=== PATIENT | male | born 1965 | race Caucasian/White ===

== ENCOUNTER 2020-10-14 09:28 | Emergency (ER) | payer OTHER ==
[~2020-10-14] VITALS: Ht 175.3 cm; Wt 147.0 kg
[~2020-10-14 09:28] MED LIST: LISINOPRIL-HCT1 EAC2 PO; OMEPRAZOLE20 MG PO; PERCOCET 10-321 EACH PO
[2020-10-14] MEDS ORDERED: PROTONIX20 MG PO (12:14)
--- NOTE | 2020-10-15 11:00 | EKG ---
[facility] [address] [facility] [place] [address] Signed Normal sinus rhythm Incomplete right bundle branch block Borderline ECG No previous ECGs available Confirmed by HITESH LITTLE DO ([id number]) on 10/15/2020 11:00:24 AM Electronically Signed By: HITESH LITTLE DO 10/15/20 1100 PATIENT NAME: NAHOMY CARO Electrocardiogram DATE OF : 69 PHYSICIAN: HITESH LITTLE DO REPORT #: [id number] REPORT IS CONFIDENTIAL AND NOT TO BE RELEASED WITHOUT AUTHORIZATION
== END 2020-10-14 12:32 | disposition home or self-care (01) ==
LOC: ED 09:28
DX: K92.2 Gastrointestinal hemorrhage, unspecified (principal); D64.9 Anemia, unspecified; F17.200 Nicotine dependence, unspecified, uncomplicated; Z79.899 Other long term (current) drug therapy
CPT/HCPCS: 80053; 83735; 84484; 85025; 93005; 93010; 99285-25

== ENCOUNTER 2020-10-16 07:30 | Day surgery (SDC) | payer OTHER ==
[~2020-10-16] VITALS: Ht 175.3 cm; Wt 147.7 kg
[~2020-10-16 07:30] MED LIST changes: +PROTONIX20 MG PO
[2020-10-16] MEDS ORDERED: ELIQUIS5 MG PO (08:04)
--- NOTE | 2020-10-16 10:06 | NUR ---
10/16/20 1006 Sintia Haynes 0958: PT ARRIVES TO PACU VIA STRETCHER FOR RECOVERY, NON AROUSABLE WITH NASAL AND ORAL AIRWAY IN PLACE. VSS, RESP EVEN AND UNLABORED. O2 SAT >98% ON 15L VIA MASK 1002: PT COUGHS AND BEGINS TO GAG ON ORAL AIRWAY. REMOVED AT THIS TIME. RESPONSIVE TO TACTILE STIMULI. 1004: OXYGEN TURNED DOWN TO 8L VIA FACEMAKS. STABLE SAT >98% AT THIS TIME
--- NOTE | 2020-10-16 13:52 | OR ---
[facility] [address] [place], [place] [address] Signed DATE OF OPERATION: 10/16/2020 SURGEON: Gifty Bolton MD PREOPERATIVE DIAGNOSES: 1. Chronic progressive iron deficiency anemia. 2. Morbid obesity with complex sleep apnea physiology. 3. Chronic anticoagulation related to prior deep venous thrombosis and pulmonary embolism (currently on Eliquis). POSTOPERATIVE DIAGNOSES: 1. Healed distal esophageal ulceration with hiatal hernia. No evidence of Helicobacter pylori or ulceration. No gastritis or duodenitis. 2. Diverticulosis of colon without sign of polyps or colitis. 3. Internal hemorrhoids. PROCEDURE: 1. Esophagogastroduodenoscopy with biopsy. 2. Total colonoscopy to cecum. ANESTHESIA: Intravenous sedation, propofol infusion, Gifty Brenner CRNA. INDICATION: This 55-year-old morbidly obese white man has numerous medical problems most dominantly recently including iron deficiency anemia. He is a patient of Dr. Johnson and also Dr. Urban and is undergoing iron infusion therapy recently. He is chronically anticoagulated with Eliquis related to deep venous thrombosis and pulmonary embolism. He presented to the emergency room two days ago and evaluated by Dr. Aviles showing his hemoglobin to be 9.2, previously 10.6 on September 23. The patient has described as having some "dark stool," but no gross blood per rectum. The patient says he had an ulcer in the , though his diagnosis was not associated with upper endoscopy as far as I can determine. He also suffered a pulmonary embolism and hospitalized between August 08 and and he was given a caval filter at that time, which has since been removed. He is anticipated to be on "Eliquis for life." Prior colonoscopy has shown diverticulosis. He is here for upper endoscopy and colonoscopy to identify possible source of his iron deficiency anemia given the aforementioned factors. He was withdrawn from Eliquis yesterday and today and given Lovenox 40 mg subcutaneously yesterday anticipating upper endoscopy today. The risks of bleeding, infection, and perforation were reviewed with Electronically Signed By: GIFTY BOLTON MD 10/16/20 1352 PATIENT NAME: NAHOMY CARO OPERATIVE REPORT DATE OF : 69 REPORT #: [id number] PHYSICIAN: GIFTY BOLTON MD PCP: NOELLE JOHNSON MD REPORT IS CONFIDENTIAL AND NOT TO BE RELEASED WITHOUT AUTHORIZATION [facility] [address] [place], [place] [address] Signed him. He understands and wished to proceed. FINDINGS: Upper endoscopy did demonstrate distal esophagitis and a linear healed esophageal ulcer. There was no sign of neoplasm. There was no clear evidence of Hunter's epithelium. The stomach and duodenum were essentially normal. Biopsies were obtained to assess for celiac disease and gastritis. Colonoscopy showed a well prepped bowel. Complete colonoscopy was undertaken of the cecum without question. There were numerous large diverticula of the sigmoid and left colon, but no sign of polyps, colitis, or other lesion that would account for bleeding. He did have hemorrhoids on retroflexed view, but they were certainly not bleeding. DESCRIPTION OF PROCEDURE: The patient was brought to the endoscopy suite, given topical lidocaine hypopharyngeal spray anesthesia. He was given intravenous sedation with propofol infusional technique with full cardiopulmonary monitoring by the wireworker supervisor. He was noted to have relatively severe apneic changes during the course of the procedure, which was well supported by the wireworker supervisor. A bite block was placed. An Olympus video upper endoscope was passed in the hypopharynx. The vocal cords appeared normal. The hypopharyngeal tissues redundant, but normal otherwise. Scope was advanced to the esophagus, throughout its length, it was normal except in the distal portion where there is a healing linear ulceration. The scope was passed to the stomach, which was insufflated with air. Rugal folds appeared normal. There was no sign of ulceration or inflammation. The pylorus was normal, scope was passed through into the duodenum. Careful inspection there showed no sign of ulceration or inflammation. Biopsies taken of the duodenal mucosa to assess for celiac disease. The scope was withdrawn and biopsies taken of the antrum for both JOSEPH and pathologic testing. Retroflexed view confirmed a poor flap valve consistent with hiatal hernia. The scope was withdrawn to the distal esophagus after biopsies of the antrum and biopsies then taken of the distal esophageal area including the ulcerated area. There was no sign of varices or other abnormality. Further withdrawal of scope showed no other findings of concern. Plans were then made for colonoscopy. Digital examination showed very lax sphincter tone. The Olympus video colonoscope was passed in the rectum and manipulated throughout the colon noting numerous diverticula of the sigmoid and left colon. The scope was ultimately passed to the cecum. The ileocecal valve and appendiceal orifice were normal. The scope was withdrawn from that point and careful inspection showed no evidence of abnormality other than the diverticulosis and on retroflexed view, internal hemorrhoidal changes which were not showing signs of bleeding. Scope was removed and the patient was taken to the recovery room in good condition. CONCLUDING DIAGNOSIS: Electronically Signed By: GIFTY BOLTON MD 10/16/20 1352 PATIENT NAME: NAHOMY CARO OPERATIVE REPORT DATE OF : 69 REPORT #: [id number] PHYSICIAN: GIFTY BOLTON MD PCP: NOELLE JOHNSON MD REPORT IS CONFIDENTIAL AND NOT TO BE RELEASED WITHOUT AUTHORIZATION [facility] [address] [place] [address] Signed The only lesion that may have contributed to microcytic anemia, might be a linear ulceration of the esophagus, which appears to be healing well. PLAN: He will return to the ongoing care of Dr. Johnson and Dr. Urban. Would suggest continued use of PPI medication. As regard to his Eliquis, we will recommend he begin that tomorrow. He will be given Lovenox 40 mg subcutaneously today. MD JOSE Griffiths/MODL /[id number] cc: MD Reyes De Los Santos MD William S. Powell, MD Copies: NOELLE JOHNSON MD, ROBERT C MD POWELL, WILLIAM S MD ~ Electronically Signed By: GIFTY BOLTON MD 10/16/20 1352 PATIENT NAME: NAHOMY CARO OPERATIVE REPORT DATE OF : 69 REPORT #: [id number] PHYSICIAN: GIFTY BOLTON MD PCP: NOELLE JOHNSON MD REPORT IS CONFIDENTIAL AND NOT TO BE RELEASED WITHOUT AUTHORIZATION
--- NOTE | 2020-10-21 09:05 | PATH ---
[facility] [address] [place], [place] [address] Signed SPECIMEN(S): A DUODENAL BIOPSY SPECIMEN(S): B ANTRUM/PYLORUS SPECIMEN(S): C DISTAL ESOPHAGUS SPECIMEN SOURCE: A. DUODENAL BIOPSY B. ANTRUM/PYLORUS C. DISTAL ESOPHAGUS CLINICAL HISTORY: Anemia. Postop diagnosis: Diverticulosis; internal hemorrhoids MICROSCOPIC DESCRIPTION: Histologic sections of all submitted blocks are examined by light microscopy. These findings, together with the gross examination, support the pathologic diagnosis. FINAL PATHOLOGIC DIAGNOSIS: A. Duodenum: - Duodenal mucosa with normal villous architecture. - Negative for inflammatory changes, features of celiac disease, and other abnormality. B. Antrum/pylorus: - Antral-type mucosa without significant inflammatory changes. - Negative for gastropathy, metaplasia, dysplasia and neoplasia. - No Helicobacter pylori organisms identified on routinely stained sections. C. Distal esophagus: - Reactive squamous mucosa with foci of acute esophagitis (intraepithelial neutrophils). - Negative for a significant eosinophil population. - No fungal organisms identified (confirmed with PAS fungal stain). - No glandular mucosa present in the sampled tissue. - Negative for dysplasia and malignancy. BES:[facility]:C2NR GROSS DESCRIPTION: Three specimens are received in three containers, labeled "PH." A. The specimen, labeled "PH," and designated on the requisition "duodenum," is received in formalin and consists of two gauthier soft tissue fragments that measure 0.3 to 0.4 cm in greatest dimension. The specimen is entirely submitted in cassette (A1). B. The specimen, labeled "PH," and designated on the requisition PATIENT NAME: NAHOMY CARO PATHOLOGY DATE OF : 69 REPORT #: [id number] PHYSICIAN: YAMILETH CABA PCP: NOELLE ALVARES MD REPORT IS CONFIDENTIAL AND NOT TO BE RELEASED WITHOUT AUTHORIZATION [facility] [address] [place], [place] [address] Signed "antrum/pylorus," is received in formalin and consists of one gauthier soft tissue fragment that measures 0.3 cm in greatest dimension. The specimen is entirely submitted in cassette (B1). C. The specimen, labeled "PH," and designated on the requisition "distal esophagus," is received in formalin and consists of one thin gauthier soft tissue fragment that measures 0.4 cm in greatest dimension. The specimen is entirely submitted in cassette (C1). AT (under the direct supervision of a pathologist) The Gross Description was prepared using a voice recognition system. The report was reviewed for accuracy; however, sound-alike word errors, addition and/or deletions may occur. If there is any question about this report, please contact Client Services. PERFORMING LABORATORY: The technical component was performed by [employer], [address] [place] [address] (Electromedical Equipment Technician: Flor Cronin MD; CLIA# [id number]). Professional interpretation was performed by [employer], [address] [place] [address] (Electromedical Equipment Technician: Flor Cronin MD; CLIA# [id number]). Diagnostician: Shashi Mcgraw MD Pathologist Electronically Signed 10/21/2020 Copies: ~ PATIENT NAME: NAHOMY CARO PATHOLOGY DATE OF : 69 REPORT #: [id number] PHYSICIAN: YAMILETH PATHOLOGY PCP: NOELLE ALVARES MD REPORT IS CONFIDENTIAL AND NOT TO BE RELEASED WITHOUT AUTHORIZATION
== END 2020-10-16 10:56 | disposition home or self-care (01) ==
LOC: OPS 07:30 → DS 07:36 → OPS 10:30
PROVIDERS: ATTEND Surgery
PROC: 0DB58ZX Excision of Esophagus, Via Natural or Artificial Opening Endoscopic, Diagnostic (ICD-10-PCS; principal; 2020-10-16 10:30)
PROC: 0DJD8ZZ Inspection of Lower Intestinal Tract, Via Natural or Artificial Opening Endoscopic (ICD-10-PCS; 2020-10-16 10:30)
DX: D50.9 Iron deficiency anemia, unspecified (principal); K21.00 Gastro-esophageal reflux disease with esophagitis, without bleeding; K44.9 Diaphragmatic hernia without obstruction or gangrene; K57.30 Diverticulosis of large intestine without perforation or abscess without bleeding; K64.8 Other hemorrhoids; I10 Essential (primary) hypertension; E66.01 Morbid (severe) obesity due to excess calories; M19.90 Unspecified osteoarthritis, unspecified site; F10.10 Alcohol abuse, uncomplicated; G47.33 Obstructive sleep apnea (adult) (pediatric); F40.240 Claustrophobia; G89.29 Other chronic pain; F12.90 Cannabis use, unspecified, uncomplicated; Z79.01 Long term (current) use of anticoagulants; Z68.42 Body mass index [BMI] 45.0-49.9, adult; Z87.11 Personal history of peptic ulcer disease; Z87.19 Personal history of other diseases of the digestive system; Z86.711 Personal history of pulmonary embolism; Z86.718 Personal history of other venous thrombosis and embolism; Z87.891 Personal history of nicotine dependence
CPT/HCPCS: 88305; 88312; J1650; J2704; J7121

== ENCOUNTER 2021-12-25 22:45 | Emergency (ER) | payer OTHER ==
[~2021-12-25] VITALS: Ht 175.3 cm; Wt 158.8 kg
[~2021-12-25 22:45] MED LIST changes: +ELIQUIS5 MG PO
[2021-12-25] MEDS ORDERED: LISINOPRIL-HCT1 EACH PO (23:04)
[2021-12-25] MEDS ORDERED: OMEPRAZOLE20 MG PO (23:05)
[2021-12-25] MEDS ORDERED: DICLOFENAC SODI75 MG PO (23:05)
== END 2021-12-26 01:58 | disposition home or self-care (01) ==
LOC: ED 22:45
DX: S16.1XXA Strain of muscle, fascia and tendon at neck level, initial encounter (principal); S00.83XA Contusion of other part of head, initial encounter; I10 Essential (primary) hypertension; Z87.891 Personal history of nicotine dependence; Z79.899 Other long term (current) drug therapy; W10.9XXA Fall (on) (from) unspecified stairs and steps, initial encounter
CPT/HCPCS: 36415; 70450; 72125; 80053; 85025; 85610; 99284-25; G0480